=== PATIENT | male | born 1990 | race Two or more races ===

== ENCOUNTER 2019-05-12 08:23 | Emergency (ER) | payer BC ==
[~2019-05-12] VITALS: Ht 170.2 cm; Wt 81.6 kg
--- NOTE | 2019-05-12 08:43 | Emergency Room Report ---
History of Present Illness General Chief Complaint: Abdominal Pain Source: Patient Present Illness HPI Patient is a 28-year-old male denies any significant past medical history who presents to the ER complaining of epigastric pain for the past 3 days. Patient states that he wakes up with the pain. He complains of an acid type feeling in his epigastrium. He denies any fever or chills. He denies any vomiting. He complains of nausea. He denies any diarrhea or constipation. He denies any chest pain or shortness of breath. 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 Allergies: Coded Allergies: No Known Allergies (Unverified , 05/12/19) Patient History Past Medical History: none Past Surgical History: none Social History: Denies: smoking, alcohol use, drug use Nursing Documentation-[facility] Past Medical History: No Stated History Review of Systems All Other Systems: negative except mentioned in HPI Physical Exam Vital Signs Date Time Temp Pulse Resp B/P (MAP) Pulse Ox O2 Delivery O2 Flow Rate FiO2 05/12/19 08:30 98.8 60 16 123/69 (87) 98 Room Air Sp02 EP Interpretation: reviewed, normal General Appearance: no apparent distress, alert, GCS 15, non-toxic Head: normocephalic, atraumatic Eyes: bilateral eye normal inspection, bilateral eye PERRL ENT: hearing grossly normal, normal pharynx, no angioedema, normal voice Neck: full range of motion, supple/symm/no masses Respiratory: chest non-tender, lungs clear, normal breath sounds, speaking full sentences Cardiovascular #1: regular rate, rhythm, no edema Gastrointestinal: normal bowel sounds, soft, non-distended, no guarding, no rebound, other - Mild epigastric tenderness to palpation with no guarding or rebound Rectal: deferred Genitourinary: normal inspection, no CVA tenderness Musculoskeletal: back normal, normal range of motion, calf tenderness, gait/ station normal, non-tender Neurologic: alert, motor strength/tone normal, oriented x3, sensory intact, responsive, speech normal Psychiatric: judgement/insight normal, memory normal, mood/affect normal, no suicidal/homicidal ideation Skin: no rash Lymphatic: no adenopathy Medical Decision Making ER Course Patient afebrile. Patient has no elevated white blood cell count. Labs demonstrate no significant acute abnormality specifically normal LFTs and normal lipase. Patient had epigastric pain with acid type feeling. Patient given Protonix in the ER with resolution of symptoms. On reexamination abdomen is soft nontender. After discussing risks and benefits of further diagnostics, treatment plans, as well as indications for and risks of admission, the patient is agreeable to being discharged home. I have explained that their evaluation and treatment in the emergency department today is an important step towards them achieving better health but that their evaluation today is not intended to replace further evaluation and treatment by a physician in their local clinic. I have explained that while the current findings suggest no immediate life threatening emergency they will require further evaluation and treatment by a physician of their choice in their area. They understand that it will be necessary for them to review the final reports of their ED visit with their clinic physician. We have reviewed indications for return to the Emergency Department. I have explained that additional time may need to pass and/or additional testing as an outpatient may be necessary before a definitive diagnosis can be made. They tell me they are willing to follow up as instructed within the timeframe I recommend. They appear to understand what we discussed. Additionally they understand that if they are unable to be seen by an outpatient physician they are welcome, and in fact should, return to the Emergency Department for a repeat evaluation. The patient is stable at time of discharge. Reevaluation Time: 09:34 Last Vital Signs Date Time Temp Pulse Resp B/P (MAP) Pulse Ox O2 Delivery O2 Flow Rate FiO2 05/12/19 08:30 98.8 60 16 123/69 (87) 98 Room Air Status: improved Disposition: HOME, SELF-CARE Condition: Stable Scripts Ondansetron (Zofran) 4 Mg Tablet 4 MG ORAL Q8H PRN for Nausea & Vomiting, #10 TAB 0 Refills Prov: Katiana Jarrell M.D. 05/12/19 Pantoprazole Sodium (PROTONIX) 20 Mg Tablet.dr 20 MG ORAL DAILY for 30 Days, TAB Prov: Katiana Jarrell M.D. 05/12/19 Patient Instructions: Gastroesophageal Reflux Disease, Adult Additional Instructions: Patient discharged in stable improved condition with outpatient clinic referral. Katiana Jarrell M.D. May 12, 2019 08:43
[2019-05-12] MEDS ORDERED: Pantoprazole Inj IVP ONE (08:45)
[2019-05-12 08:50] VITALS: BP 123/69
--- NOTE | 2019-05-12 08:50 | NUR ---
ED Nurse Note: pt walked in due to abd pain x 3 days which is worse on the morning. pt denies nausea/vomiting
--- NOTE | 2019-05-12 08:52 | NUR ---
ED Nurse Note: IV SITE ESTABLISHED, PATENT AND INTACT. BLOOD AND URINE SPECIMEN SENT TO LAB
[2019-05-12 08:58] LABS: APPEARANCE,URINE CLEAR; BILIRUBIN, URINE NEGATIVE (NEGATIVE); COLOR,URINE PALE YELLOW; GLUCOSE, URINE (UA) NEGATIVE (NEGATIVE); KETONES,URINE NEGATIVE (NEGATIVE); LEUKOCYTE ESTERASE ,URINE NEGATIVE (NEGATIVE); NITRITE,URINE NEGATIVE (NEGATIVE); PH,URINE 7 (4.5-8.0); PROTEIN,URINE 1+ (NEGATIVE); UROBILINOGEN,URINE NORMAL MG/DL (0.0-1.0)
[2019-05-12 09:00] LABS: BASOPHILS % (AUTO) 1.7 % (0.0-2.0); EOSINOPHILS % (AUTO) 3.1 % (0.0-3.0); HEMATOCRIT 44.3 % (42.0-52.0); HEMOGLOBIN 15.1 G/DL (14.2-18.0); LYMPHOCYTES % (AUTO) 26.3 % (20.0-45.0); MEAN CORPUSCULAR VOLUME 91 FL (80-99); MONOCYTES % (AUTO) 11.1 % (1.0-10.0); NEUTROPHILS % (AUTO) 57.9 % (45.0-75.0); PLATELET COUNT 150 K/UL (150-450); RED BLOOD COUNT 4.85 M/UL (4.70-6.10); RED CELL DISTRIBUTION WIDTH 12.3 % (11.6-14.8); WHITE BLOOD COUNT 7.1 K/UL (4.8-10.8)
[2019-05-12 09:19] LABS: ANION GAP 9 mmol/L (5-15); BLOOD UREA NITROGEN 16 mg/dL (7-18); CARBON DIOXIDE 27 MMOL/L (21-32); CHLORIDE 105 MMOL/L (98-107); CREATININE 1.1 MG/DL (0.55-1.30); POTASSIUM 3.8 MMOL/L (3.5-5.1); SODIUM 141 MMOL/L (136-145)
[2019-05-12] MEDS ORDERED: ZOFRAN4 MG ORAL (09:21)
[2019-05-12] MEDS ORDERED: PROTONIX20 MG ORAL (09:21)
[2019-05-12 09:24] LABS: ALANINE AMINOTRANSFERASE 25 U/L (12-78); ALBUMIN 3.8 G/DL (3.4-5.0); ALBUMIN/GLOBULIN RATIO 1.1 (1.0-2.7); ALKALINE PHOSPHATASE 82 U/L (46-116); ASPARTATE AMINO TRANSFERASE 21 U/L (15-37); BILIRUBIN,TOTAL 0.4 MG/DL (0.2-1.0)
[2019-05-12 09:33] VITALS: BP 127/79
--- NOTE | 2019-05-12 09:33 | NUR ---
ER DISCHARGE NOTE: Patient is cleared to be discharged per ERMD, pt is aox4, on room air, with stable vital signs. pt was given dc and prescription instructions, pt was able to verbalize understanding, pt id band and iv site removed without complications. pt is able to ambulate with steady gait. pt took all belongings.
== END 2019-05-12 09:30 | disposition home or self-care (01) ==
LOC: EMR 09:05
DX: R10.13 Epigastric pain (principal); R11.0 Nausea
CPT/HCPCS: 36415; 80053; 81003; 83690; 85025; 96361; 96374; 96375; 99284; C9113; J2405; J7030